=== PATIENT | male | born 1940 | race Two or more races ===

== ENCOUNTER 2019-02-01 22:27 | Inpatient (IN) ==
--- NOTE | 2019-02-01 22:56 | ERNOTE ---
Medical Problem HPI - General Time Seen by Provider: 02/01/19 22:38 Source: patient, family Exam Limitations: clinical condition, language barrier - Immun/Allergies/Home Medications Immunizations: IMMUNIZATION HX Immunizations Up to Date No History of Influenza Vaccine Yes Hx Pneumococcal Vaccination Yes Allergies/Adverse Reactions: Allergies No Known Allergies Allergy (Verified 02/01/19 22:36) Home Medications: HOME MEDICATIONS HYDROcodone/ACETAMINOPHEN [Hydrocodon-Acetaminophen 5-325] 2 tab PO TID 01/24/19 [Last Taken Unknown] Levofloxacin [Levaquin] 500 mg PO DAILY #10 tab 01/24/19 [Last Taken Unknown] Lisinopril 20 mg PO DAILY 01/24/19 [Last Taken Unknown] Polyethylene Glycol 3350 [Miralax] 17 gm PO DAILY 01/24/19 [Last Taken Unknown] - History of Present History Narrative: Patient was seen in this ER approximately 4 days ago. He was having weakness and had a left pleural effusion and was on antibiotics from a previous ER visit. He was started on Lasix and given IV Lasix in the ER. He was having difficulty eating and drinking and so he only took 1 dose of his Lasix and stopped. He has continued to have lower extremity swelling and shortness of breath, being weak all over and having no appetite and difficulty eating and taking in liquids. Timing: getting worse Severity: moderate Review of Systems - Review of Systems Constitutional: Present: recent illness, fatigue, malaise ENT: Present: other - sore tongue. Absent: nose congestion, nasal drainage Respiratory: Present: shortness of breath, orthopnea Cardiology: Absent: chest pain, palpitations Gastrointestinal/Abdominal: Present: nausea. Absent: vomiting - maybe once this am. Genitourinary: Present: decreased urinary output Musculoskeletal: Present: muscle pain Skin: Present: dryness Neurological: Absent: numbness, tingling Hematologic/Lymphatic: Present: easy bruising Medical History (Updated 02/02/19 @ 00:17 by Quinton Craig DO) Pleural effusion (Acute) Hypertension (Acute) Mass of left kidney (Acute) Perforated ulcer Surgical History: Surgical History (Updated 01/24/19 @ 16:39 by Mariana Ruvalcaba RN) History of total left hip replacement Family History: Family History (Updated 02/02/19 @ 01:17 by Natalia Dixon RN) Other Unknown family medical history Social History: (Last Reviewed 02/01/19 @ 22:54 by Quinton Craig DO) Tobacco: Smoking Status: Current some day smoker Physical Exam - Physical Exam General Appearance: Present: wd/wn, alert, mild distress, lethargic Head Exam: Present: normal inspection, no evidence of injury Eye Exam: Normal inspection: bilateral, PERRL: bilateral, EOMI: bilateral Ears, Nose, Throat: Present: other - Tongue is erythematous and dry with white plaques Neck: Present: normal inspection, nontender Respiratory: Present: no respiratory distress, normal breath sounds - Right lung, decreased breath sounds - Left lung Cardiovascular/Chest: Present: regular rate, rhythm, normal peripheral pulses Gastrointestinal/Abdominal: Present: nontender, nondistended, soft, abnormal bowel sounds - Slightly hyperactive bowel sounds Back Exam: Present: normal inspection, normal range of motion Extremity Exam: Present: normal inspection, normal range of motion, extremity edema - Bilateral lower extremity 3+ Neurological Exam: Present: alert, oriented, normal mood/affect, no motor/sensory deficits Skin Exam: Present: normal color, warm/dry Lymphatic Exam: Present: no adenopathy Progress - Results and Orders Patient's Lab Results:: I have reviewed the patient's lab results. Results and Orders: Laboratory Tests 02/01/19 02/01/19 02/01/19 23:00 23:00 23:15 WBC 17.6 H Hgb 11.1 L Hct 33.6 L Plt Count 194 Neutrophils % (Manual) 87 H Sodium 139 Potassium 4.2 Chloride 104 BUN 43 H Creatinine 1.48 H D Random Glucose 100 AST 35 ALT 16 L Alkaline Phosphatase 145 Troponin I Less than 0.017 B-Natriuretic Peptide 2073 H TSH 0.675 Urine Color Yellow Urine Appearance Clear Urine pH 5.5 Ur Specific Brewster 1.020 Urine Protein 15 H Urine Glucose (UA) Negative Urine Ketones Negative Urine Blood 250 H Urine Nitrate Negative Ur Leukocyte Esterase Negative - Vital Signs Patient's Vital Signs:: I have reviewed the patient's vital signs. - EKG EKG #1 EKG: NSR, nonspecific ST T wave changes EKG read: Interp. by me - X-Ray X-Ray #1 X-Ray: chest Interpretation: Interp. by me X-ray Comments: Unchanged left lower lobe density. Right lung normal. Cardiac size appears normal X-Ray #2 X-Ray: abdomen Interpretation: Interp. by me X-ray Comments: Nonspecific bowel gas pattern moderate stool throughout the colon. - Progress/Reassessment Progress Note-Subjective: 02/02/19 00:[address] Reese he agrees an inpatient admission for pneumonia and pleural effusion. Departure Clinical Impression: Pleural effusion, Thrush, oral Pneumonia Qualifiers: Pneumonia type: due to unspecified organism Laterality: left Lung location: lower lobe of lung Qualified Code(s): J18.1 - Lobar pneumonia, unspecified organism - Departure Disposition: Still a patient Condition: Good
[2019-02-01 23:07] LABS: Hematocrit 33.6 % (42.0-52.0); Hemoglobin 11.1 gm/dL (13.5-18.0); Mean Cell Volume 92.1 fl (78-100); Mean Corpuscular Hemoglobin 30.4 pg (27-31); Mean Platelet Volume 8.8 fl (8-11.3); Platelet Count 194 K/mm3 (150-450); Red Blood Count 3.65 M/mm3 (4.7-6.0); Red Cell Distribution Width 13.7 % (11.5-14.0); White Blood Count 17.6 K/mm3 (4.0-10.5)
[2019-02-01 23:12] LABS: Total Cells Counted 100
[2019-02-01 23:18] LABS: Band 4 % (0-2.0); Lymphocyte 5 % (20-51); Monocyte 4 % (0-9); Neutrophil 87 % (42-75); Neutrophil # 15.3 K/mm3 (1.3-6.0)
[2019-02-01 23:19] LABS: Platelet Estimate Normal (NORMAL); RBC Morphology Normal (NORMAL)
[2019-02-01 23:25] LABS: Troponin I Less than 0.017 ng/mL (0.00-0.10)
[2019-02-01 23:28] LABS: ALT 16 U/L (19-67); AST 35 U/L (0-48); Albumin * 1.9 gm/dl (3.4-5.0); Alkaline Phosphatase * 145 U/L (50-170); BNP * 2073 pg/mL (5-650); BUN/Creatinine Ratio 29.1 (9.0-21.6); Bilirubin, Total 0.6 mg/dL (0.0-1.1); Blood Urea Nitrogen 43 mg/dL (6-23); Ca. Corrected For Albumin 10.6 mg/dL (8.4-10.2); Calcium * 9.2 mg/dL (7.9-10.9); Carbon Dioxide 27.2 mmol/L (24-32.6); Chloride 104 mmol/L (97-106); Glucose * 100 mg/dL (70-110); Potassium 4.2 mmol/L (3.4-4.6); Sodium 139 mmol/L (132-142); TSH * 0.675 uIU/mL (0.358-3.74); Total Protein 6.9 gm/dL (6.2-8.2)
[2019-02-01 23:43] LABS: Urine Appearance Clear (CLEAR); Urine Bacteria TRACE; Urine Bilirubin Negative (NEGATIVE); Urine Blood 250 /ul (NEGATIVE); Urine Color Yellow; Urine Ketone Negative (NEGATIVE); Urine Nitrite Negative (NEGATIVE); Urine Protein 15 mg/dL (NEGATIVE); Urine Urobilinogen Normal (NORMAL); Urine WBC 0-5 /hpf (0-5); Urine pH 5.5 pH (5.0-7.0)
[2019-02-02] MEDS ORDERED: AZITHROMYCIN 250 MG TABLET PO ONE (00:24)
[2019-02-02] MEDS ORDERED: DEXTROSE 5 % IN WATER 100 ML BAG IV ONE (00:36)
[2019-02-02] MEDS: NYSTATIN ORAL.SUSP PO SCH ×5 (01:24→21:30)
[2019-02-02] MEDS: PROCHLORPERAZINE MALEATE 10 MG TABLET PO PRN (03:59)
[2019-02-02] MEDS: PHENOL 180 SPRAY BTL MM PRN ×2 (03:59→09:13)
[2019-02-02] MEDS: HYDROcodone/ACETAMINOPHEN 1 EACH TABLET PO PRN ×2 (04:17→13:42)
--- NOTE | 2019-02-02 05:56 | HP ---
Chief Complaint - Chief Complaint Date of Service: 02/02/19 Time of Service: 05:55 Chief Complaint: Shortness of breath, edema, orthopnea, mouth pain, general malaise History of Present Illness: This is an 79-year-old male with no local physician who is just recently moved to the area. He had been seen in the emergency room 4 days ago and given a prescription for Lasix and started on Cipro for a left pleural effusion. He developed oral candidiasis has been placed on nystatin suspension. He presented to the emergency room tonight because of shortness of breath and orthopnea and generalized weakness and debilitation. In the emergency room a chest x-ray was done showing a left pleural effusion. Two-view of the abdomen shows inspissated feces in the rectum and sigmoid colon areas with moderate: Gas noted. No free air in the abdomen and there is no air-fluid levels in the small bowel. Lab work shows an elevated white count of 17,000 with a left shift in the differential. Is admitted to general medical floor for IV antibiotics, IV diuretics, and physical therapy for improving strength and mobility. Medical History (Updated 02/02/19 @ 05:56 by Kennedy Reese DO) Pleural effusion (Acute) Hypertension (Acute) Mass of left kidney (Acute) Perforated ulcer Surgical History: Surgical History (Updated 02/02/19 @ 05:56 by Kennedy Reese DO) History of total left hip replacement Family History: Family History (Updated 02/02/19 @ 01:17 by Natalia Dixon RN) Father Cancer Mother Old age Other Unknown family medical history Social History: (Last Updated 02/02/19 @ 01:19 by Natalia Dixon RN) Tobacco: Smoking Status: Current some day smoker tobacco type: cigarettes Smoking cigarettes per day: 30 Alcohol: alcohol intake: never Substance Use: substance use type: does not use Dietary Habits: caffeine: Yes Pets: pets and animals: none Mandi/Rastafarian: mandi/alevism: Telugu Yarsani Review Of Systems (GEN) - Review of Systems Generalized/Overall Review: Present: Weakness, Malaise, Fatigue, Weight loss EENTM: Present: Mouth Pain - Due to thrush Respiratory: Present: Cough, Shortness of Breath, Orthopnea Cardiac: Present: No Symptoms Reported Abdominal: Present: Constipation Genitourinary: Present: No Symptoms Reported Musculoskeletal: Present: No Symptoms Reported Neurological: Present: Weakness Skin: Present: Change in Color Endocrine: Present: No Symptoms Reported Immunizations: IMMUNIZATION HX Immunizations Up to Date No History of Influenza Vaccine Yes Hx Pneumococcal Vaccination Yes Allergies/Adverse Reactions: Allergies Allergy/AdvReac Type Severity Reaction Status Date / Time No Known Allergies Allergy Verified 02/01/19 22:36 Home Medications: HOME MEDICATIONS HYDROcodone/ACETAMINOPHEN [Hydrocodon-Acetaminophen 5-325] 2 tab PO TID 01/24/19 [Last Taken Unknown] Levofloxacin [Levaquin] 500 mg PO DAILY #10 tab 01/24/19 [Last Taken Unknown] Lisinopril 20 mg PO DAILY 01/24/19 [Last Taken Unknown] Polyethylene Glycol 3350 [Miralax] 17 gm PO DAILY 01/24/19 [Last Taken Unknown] Exam - Exam Vital Signs: Vital Signs - Last Taken Temp 36.8 C 02/02/19 01:00 Pulse 78 02/02/19 01:00 Resp 20 02/02/19 01:00 BP 147/62 02/02/19 01:00 Pulse Ox 97 02/02/19 01:00 Constitutional: Present: Alert, Oriented x3, Cooperative, Well developed, Mild distress, Lethargic, Somnolent, Elderly. Absent: Well nourished ENT Exam: Present: hearing grossly normal, pharyngeal erythema, other - Tongue is red and beefy looking and is sore. There are white plaques on an erythematous base the buccal mucosa and pharynx. Neck: Present: non-tender, supple, normal inspection, limited range of motion Back Exam: Present: other - Severe rotoscoliosis Breasts: Present: Exam deferred Respiratory: Present: decreased breath sounds - In the left chest, rhonchi, expiration (prolonged), plerual rub Cardiovascular/Chest: Present: normal peripheral pulses, regular rate, rhythm, no chest tenderness, edema - Pitting to the proximal one third of the tibia Peripheral Pulses: carotid (R): 2+, carotid (L): 2+, radial (R): 2+, radial (L): 2+ Abdomen: Present: Normal bowel sounds, soft - But with palpable stool in the left colon, nontender, nondistended, no rebound tenderness, no hepatospenomegaly, no masses /Rectal: Present: Exam deferred Extremity: Present: normal range of motion, lower extremity edema, pedal edema Skin Exam: Present: pallor Lymphatic: Present: no adenopathy Neurologic: Present: 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, alert, normal mood/affect, oriented x 3, motor weakness, depressed affect Appearance: Present: appropriate appearance, appropriate insight, neat, no memory impairment Eye contact: Present: cooperative, good eye contact, normal speech Thoughts: Present: normal thought pattern, no apparent hallucination Diagnostic Studies: Abnormal Lab Results 02/01/19 02/01/19 02/01/19 Range/Units 23:00 23:00 23:15 WBC 17.6 H (4.0-10.5) K/mm3 RBC 3.65 L (4.7-6.0) M/mm3 Hgb 11.1 L (13.5-18.0) gm/dL Hct 33.6 L (42.0-52.0) % Neutrophils % (Manual) 87 H (42-75) % Band Neuts % (Manual) 4 H (0-2.0) % Lymphocytes % (Manual) 5 L (20-51) % Neutrophils # (Manual) 15.3 H (1.3-6.0) K/mm3 Lymphocytes # (Manual) 0.9 L (1.5-3.5) k/mm3 BUN 43 H (6-23) mg/dL Creatinine 1.48 H D (0.4-1.4) mg/dL Est GFR (Non-Af Amer) 48 L D (60-130) mL/min BUN/Creatinine Ratio 29.1 H (9.0-21.6) Calcium Adj for Albumin 10.6 H (8.4-10.2) mg/dL ALT 16 L (19-67) U/L B-Natriuretic Peptide 2073 H (5-650) pg/mL Albumin 1.9 L (3.4-5.0) gm/dl Urine Protein 15 H (NEGATIVE) mg/dL Urine Blood 250 H (NEGATIVE) /ul Urine RBC 5-10 H (0-5) /hpf Laboratory Results WBC 17.6 K/mm3 (4.0-10.5) H 02/01/19 23:00 RBC 3.65 M/mm3 (4.7-6.0) L 02/01/19 23:00 Hgb 11.1 gm/dL (13.5-18.0) L 02/01/19 23:00 Hct 33.6 % (42.0-52.0) L 02/01/19 23:00 MCV 92.1 fl (78-100) 02/01/19 23:00 MCH 30.4 pg (27-31) 02/01/19 23:00 MCHC 33.0 g/dl (32-36) 02/01/19 23:00 RDW 13.7 % (11.5-14.0) 02/01/19:00 Plt Count 194 K/mm3 (150-450) 02/01/19 23:00 MPV 8.8 fl (8-11.3) 02/01/19 23:00 87 % (42-75) H 02/01/19 23:00 Band Neuts % (Manual) 4 % (0-2.0) H 02/01/19 23:00 5 % (20-51) L 02/01/19 23:00 4 % (0-9) 02/01/19 23:00 15.3 K/mm3 (1.3-6.0) H 02/01/19 23:00 0.9 k/mm3 (1.5-3.5) L 02/01/19 23:00 0.7 k/mm3 (0.0-1.0) 02/01/19 23:00 Normal (NORMAL) 02/01/19 23:00 RBC Morphology Normal (NORMAL) 02/01/19 23:00 Sodium 139 mmol/L (132-142) 02/01/19 23:00 139 mmol/L (130-142) 02/01/19 23:00 Potassium 4.2 mmol/L (3.4-4.6) 02/01/19 23:00 Chloride 104 mmol/L (97-106) 02/01/19 23:00 Carbon Dioxide 27.2 mmol/L (24-32.6) 02/01/19 23:00 12.0 mmol/L (6.8-13.8) 02/01/19 23:00 BUN 43 mg/dL (6-23) H 02/01/19 23:00 1.48 mg/dL (0.4-1.4) H D 02/01/19 23:00 Est GFR (Non-Af Amer) 48 mL/min (60-130) L D 02/01/19 23:00 29.1 (9.0-21.6) H 02/01/19 23:00 100 mg/dL (70-110) 02/01/19 23:00 Calcium 9.2 mg/dL (7.9-10.9) 02/01/19 23:00 Calcium Adj for Albumin 10.6 mg/dL (8.4-10.2) H 02/01/19 23:00 0.6 mg/dL (0.0-1.1) 02/01/19 23:00 AST 35 U/L (0-48) 02/01/19 23:00 ALT 16 U/L (19-67) L 02/01/19 23:00 145 U/L (50-170) 02/01/19 23:00 Less than 0.017 ng/mL (0.00-0.10) 02/01/19 23:00 B-Natriuretic Peptide 2073 pg/mL (5-650) H 02/01/19 23:00 6.9 gm/dL (6.2-8.2) 02/01/19 23:00 1.9 gm/dl (3.4-5.0) L 02/01/19 23:00 TSH 0.675 uIU/mL (0.358-3.74) 02/01/19 23:00 Yellow 02/01/19 23:15 Clear (CLEAR) 02/01/19 23:15 5.5 pH (5.0-7.0) 02/01/19 23:15 Ur Specific Elliott 1.020 SP.GR. (1.005-1.030) 02/01/19 23:15 15 mg/dL (NEGATIVE) H 02/01/19 23:15 Negative mg/dL (NEGATIVE) 02/01/19 23:15 Negative mg/dL (NEGATIVE) 02/01/19 23:15 250 /ul (NEGATIVE) H 02/01/19 23:15 Negative (NEGATIVE) 02/01/19 23:15 Negative mg/dl (NEGATIVE) 02/01/19 23:15 Prot Sulfosalicylic Acd Negative mg/dL (0) 02/01/19 23:15 Normal EU/dl (NORMAL) 02/01/19 23:15 Ur Leukocyte Esterase Negative /ul (NEGATIVE) 02/01/19 23:15 5-10 /hpf (0-5) H 02/01/19 23:15 0-5 /hpf (0-5) 02/01/19 23:15 Ur Epithelial Cells 0-5 /hpf (0-5) 02/01/19 23:15 Trace (NONE) 02/01/19 23:15 No culture indicated 02/01/19 23:15 Assessment/Plan - Narrative Narrative: 1. IV antibiotics 2. PT to evaluate motor strength and ambulatory skills 3. Continue nystatin for oral thrush 4. Repeat lab at 11 AM this morning 5. Check a lactic acid now - Assessment/Plan (1) Pulmonary edema Problem: Acute Qualifiers: Chronicity: acute Qualified Code(s): J81.0 - Acute pulmonary edema (2) Pneumonia Problem: Acute Qualifiers: Pneumonia type: due to unspecified organism Laterality: left Lung location: lower lobe of lung Qualified Code(s): J18.1 - Lobar pneumonia, unspecified organism (3) Thrush, oral Problem: Acute (4) Pleural effusion Problem: Acute (5) Hypertension Problem: Acute Qualifiers: Hypertension type: essential hypertension Qualified Code(s): I10 - Essential (primary) hypertension (6) Mass of left kidney Problem: Acute (7) Stage III chronic kidney disease Problem: Chronic
[2019-02-02] MEDS ORDERED: LISINOPRIL 10 MG TABLET PO SCH (09:00)
[2019-02-02] MEDS ORDERED: LEVOFLOXACIN 500 MG TABLET PO SCH (09:00)
[2019-02-02] MEDS ORDERED: HYDROcodone/ACETAMINOPHEN 1 EACH TABLET PO SCH (09:00)
[2019-02-02] MEDS: POLYETHYLENE GLYCOL 3350 17 GM PACKET PO SCH (09:50)
[2019-02-02] MEDS: LISINOPRIL 5 MG TABLET PO SCH (11:00)
[2019-02-02 11:37] LABS: Albumin * 1.6 gm/dl (3.4-5.0); Anion Gap 11.1 mmol/L (6.8-13.8); BUN/Creatinine Ratio 29.3 (9.0-21.6); Bilirubin, Total 0.5 mg/dL (0.0-1.1); Ca. Corrected For Albumin 10.3 mg/dL (8.4-10.2); Calcium * 8.7 mg/dL (7.9-10.9); Carbon Dioxide 26.9 mmol/L (24-32.6); Total Protein 6.4 gm/dL (6.2-8.2)
[2019-02-02 11:46] LABS: Hematocrit 30.8 % (42.0-52.0); Hemoglobin 10.2 gm/dL (13.5-18.0); Mean Cell Volume 91.7 fl (78-100); Mean Corpuscular Hemoglobin 30.4 pg (27-31); Mean Corpuscular Hgb Conc 33.1 g/dl (32-36); Mean Platelet Volume 9.5 fl (8-11.3); Platelet Count 180 K/mm3 (150-450); Red Blood Count 3.36 M/mm3 (4.7-6.0); Red Cell Distribution Width 13.6 % (11.5-14.0); White Blood Count 16.5 K/mm3 (4.0-10.5)
[2019-02-02 11:51] LABS: Total Cells Counted 100
[2019-02-02 12:14] LABS: Band 8 % (0-2.0); Lymphocyte 3 % (20-51); Monocyte 3 % (0-9); Neutrophil 86 % (42-75); Neutrophil # 14.2 K/mm3 (1.3-6.0)
[2019-02-02 12:15] LABS: Hypochromia 1+; Polychromasia Trace
[2019-02-02 12:16] LABS: Platelet Estimate Normal (NORMAL)
[2019-02-02] MEDS ORDERED: MORPHINE SULFATE 2 MG/ML DISP.SYRIN IV ONE (14:25)
[2019-02-02] MEDS ORDERED: FLUCONAZOLE 40 MG/ML SUSP.RECON PO SCH (14:45)
--- NOTE | 2019-02-02 15:07 | PN ---
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 He left there before getting a metastatic workup, oncology consult, but was told he would need a cystoscopy. His mouth is very sore and has changed the taste of foods to the point that he can hardly eat. His toungue is beefy red and swollen and appears dry. There is plack along the lateral edges of the tongue. The gums are very sore and tender but no plack is seen there. The pharynx is reddened and appears very inflamed. Cepastat is not working. His Albumin is only 1.6. He has anasarca edema in the LEs (lower 1/3 of the lower legs). Hydrocodone is not helping and it is very difficult to swallow. Plan: 1. Continue the Nystatin qid 2. Add Diflucan 200mg susp. daily 3. Check for pyridoxine deficiency and B12 defic. 4. Give a banana bag of vitamins. 5. Change the Azitrhromycin to susp 200mg daily for 4 more days. 6. Get MRs from [place] [facility] 7. Schedule for a PET scan [facility]. 8. ADD Lidocaine viscous 2% q 2 hrs prn. 9. DC hydrocodone 10. Start MS IV 2mg q 2Hrs prn pain.
[2019-02-02] MEDS: LIDOCAINE HCL 20 ML UDC PO PRN (15:25)
[2019-02-02] MEDS: MULTIVIT INFUSN,ADULT 4,VIT K 10 ML, THIAMINE HCL 100 MG in DEXTROSE 5 % IN WATER 1,000 ML IV SCH ×3 (15:29)
[2019-02-02] MEDS: MORPHINE SULFATE 2 MG/ML DISP.SYRIN IV PRN (15:32)
[2019-02-03] MEDS: PROCHLORPERAZINE MALEATE 10 MG TABLET PO PRN (02:47)
[2019-02-03] MEDS: MORPHINE SULFATE 2 MG/ML DISP.SYRIN IV PRN ×6 (03:58→22:48)
[2019-02-03 05:29] LABS: Hematocrit 30.1 % (42.0-52.0); Mean Cell Volume 90.7 fl (78-100); Mean Corpuscular Hemoglobin 30.1 pg (27-31); Mean Corpuscular Hgb Conc 33.2 g/dl (32-36); Mean Platelet Volume 9.1 fl (8-11.3); Neutrophil # 13.8 K/mm3 (1.3-6.0); Neutrophil % 86.4 % (42-75.0); Platelet Count 176 K/mm3 (150-450); Red Blood Count 3.32 M/mm3 (4.7-6.0); Red Cell Distribution Width 13.5 % (11.5-14.0)
[2019-02-03 05:54] LABS: Albumin * 1.7 gm/dl (3.4-5.0); Anion Gap 11.3 mmol/L (6.8-13.8); BUN/Creatinine Ratio 27.5 (9.0-21.6); Bilirubin, Total 0.5 mg/dL (0.0-1.1); Ca. Corrected For Albumin 9.6 mg/dL (8.4-10.2); Calcium * 8.1 mg/dL (7.9-10.9); Carbon Dioxide 25.7 mmol/L (24-32.6); Total Protein 6.5 gm/dL (6.2-8.2)
[2019-02-03] MEDS: POLYETHYLENE GLYCOL 3350 17 GM PACKET PO SCH ×2 (08:49→17:16)
[2019-02-03] MEDS: LISINOPRIL 5 MG TABLET PO SCH (08:50)
[2019-02-03] MEDS: NYSTATIN ORAL.SUSP PO SCH ×4 (08:52→20:19)
[2019-02-03] MEDS ORDERED: AZITHROMYCIN 200 MG/5 ML SUSP.RECON PO SCH (09:00)
[2019-02-03] MEDS ORDERED: LISINOPRIL 5 MG TABLET PO SCH (09:00)
[2019-02-03] MEDS ORDERED: FLUCONAZOLE 40 MG/ML SUSP.RECON PO SCH (09:00)
[2019-02-03] MEDS: LIDOCAINE HCL 20 ML UDC PO PRN ×3 (13:34→22:52)
[2019-02-03] MEDS: MULTIVIT INFUSN,ADULT 4,VIT K 10 ML, THIAMINE HCL 100 MG in DEXTROSE 5 % IN WATER 1,000 ML IV SCH ×3 (15:11)
[2019-02-03] MEDS: PANTOPRAZOLE SODIUM 40 MG in NORMAL SALINE 100 ML IV SCH (17:58)
--- NOTE | 2019-02-03 18:01 | PN ---
Subjective - Date and Time Seen Date: 02/03/19 Time: 08:00 Subjective Narrative: thought he was feeling a little bit better this morning but he refused supper last night and breakfast this morning. Says he just cannot eat. His mouth hurts and his stomach is nauseous. His albumin is down to 1.7. His kidney function has improved from 47-62 EGFR. I believe this is a good time to proceed with CT imaging of the chest abdomen and pelvis with contrast tomorrow. He is in no respiratory distress and there is no evidence of fluid overload. His tongue remains beefy red with some swelling. His gums are inflamed. I do not see any plaque formation. Examination of the lungs continue to show adventitious rhonchi with some wheezes and diminished breath sounds in the left chest. The abdomen is soft but tender in the midepigastrium and right hypochondrium. The liver is tender to palpation. Extremities continue to show some anasarca-like edema. Unfortunately, I believe that he is pretty sick man and needs to be completely diagnosed. His hydration status is improved. His hemoglobin has leveled at 10.1 g. The white count is still elevated. Morphine seems to help with his pain and discomfort but he is refusing any topical anesthetics for his mouth now. Objective - Review of Systems Generalized/Overall Review: Reports: Weakness, Malaise, Fatigue, Weight loss EENTM: Reports: Throat Pain, Mouth Pain, Other - Tongue swelling Respiratory: Reports: Cough, Shortness of Breath, Wheezing Cardiac: Reports: No Symptoms Reported Abdominal: Reports: Nausea, Abdominal Pain. Denies: Vomiting Genitourinary Symptoms: Reports: No Symptoms Reported Musculoskeletal Complaints: Reports: Muscle Pain Neurological: Reports: No Symptoms Reported, Weakness Skin: Reports: No Symptoms Reported, Change in Color Endocrine: Reports: No Symptoms Reported - Vitals Vitals: Last Vital Signs Temp 36.5 C 02/03/19 14:00 Pulse 76 02/03/19 14:00 Resp 18 02/03/19 14:00 BP 148/68 02/03/19 14:00 Pulse Ox 94 02/03/19 14:00 - Abnormal Lab Findings Abnormal Lab Findings: Abnormal Lab Results 02/03/19 02/03/19 Range/Units 05:26 05:26 WBC 16.0 H (4.0-10.5) K/mm3 RBC 3.32 L (4.7-6.0) M/mm3 Hgb 10.0 L (13.5-18.0) gm/dL Hct 30.1 L (42.0-52.0) % Immature Gran % (Auto) 2.70 H (0.001-0.429) % Immature Gran # (Auto) 0.43 H (0.000-0.0310) K/mm3 Neutrophils % 86.4 H (42-75.0) % Lymphocytes % 6.3 L (20-51) % Neutrophils # 13.8 H (1.3-6.0) K/mm3 Lymphocytes # 1.00 L (1.5-3.5) k/mm3 BUN 33 H (6-23) mg/dL BUN/Creatinine Ratio 27.5 H (9.0-21.6) ALT 11 L (19-67) U/L Albumin 1.7 L (3.4-5.0) gm/dl - Exam Constitutional: Present: Alert, Oriented x3, Cooperative, Elderly, Thin and frail ENT Exam: Present: dry mucous membranes - Tongue is red and swollen and the gums are inflamed and the throat is inflamed as well. Neck: Present: non-tender, full range of motion, supple, normal inspection Breasts: Present: Exam deferred Respiratory: Present: decreased breath sounds - On the left, rhonchi, wheezing, plerual rub Cardiovascular/Chest: Present: normal peripheral pulses, regular rate, rhythm, no chest tenderness, no edema, no gallop, no JVD, no murmur, no rub Abdomen: Present: Normal bowel sounds, soft, nontender, nondistended, no rebound tenderness, tender, guarding - And wincing on palpation of the right upper quadrant. 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 CT chest abdomen and pelvis with contrast tomorrow 2. Add sucralfate and pantoprazole as ordered 3. Repeat morning lab - Problems/Diagnosis (1) Pulmonary edema Problem: Acute Qualifiers: Chronicity: acute Qualified Code(s): J81.0 - Acute pulmonary edema (2) Pneumonia Problem: Acute Qualifiers: Pneumonia type: due to unspecified organism Laterality: left Lung location: lower lobe of lung Qualified Code(s): J18.1 - Lobar pneumonia, unspecified organism (3) Thrush, oral Problem: Acute (4) Pleural effusion Problem: Acute (5) Hypertension Problem: Acute Qualifiers: Hypertension type: essential hypertension Qualified Code(s): I10 - Essential (primary) hypertension (6) Mass of left kidney Problem: Acute (7) Stage III chronic kidney disease Problem: Chronic
[2019-02-03] MEDS: SUCRALFATE 1 G/10 ML UDC PO SCH (20:17)
[2019-02-04] MEDS: LIDOCAINE HCL 20 ML UDC PO PRN (04:39)
[2019-02-04] MEDS: MORPHINE SULFATE 2 MG/ML DISP.SYRIN IV PRN ×4 (04:49→20:02)
[2019-02-04] MEDS ORDERED: DIATRIZOATE MEGLUMINE, SODIUM 30 ML BTL PO ONE (05:00)
[2019-02-04] MEDS: LISINOPRIL 5 MG TABLET PO SCH (08:19)
[2019-02-04] MEDS: SUCRALFATE 1 G/10 ML UDC PO SCH ×4 (08:27→20:06)
[2019-02-04] MEDS: NYSTATIN ORAL.SUSP PO SCH ×4 (08:28→17:13)
[2019-02-04] MEDS: AZITHROMYCIN 200 MG/5 ML SUSP.RECON PO SCH (08:28)
[2019-02-04 08:34] LABS: Hematocrit 32.5 % (42.0-52.0); Hemoglobin 10.7 gm/dL (13.5-18.0); Mean Cell Volume 91.5 fl (78-100); Mean Corpuscular Hemoglobin 30.1 pg (27-31); Mean Corpuscular Hgb Conc 32.9 g/dl (32-36); Mean Platelet Volume 9.1 fl (8-11.3); Neutrophil # 16.4 K/mm3 (1.3-6.0); Neutrophil % 85.6 % (42-75.0); Platelet Count 209 K/mm3 (150-450); Red Blood Count 3.55 M/mm3 (4.7-6.0); Red Cell Distribution Width 13.6 % (11.5-14.0); White Blood Count 19.1 K/mm3 (4.0-10.5)
[2019-02-04 08:47] LABS: Albumin * 1.8 gm/dl (3.4-5.0); Anion Gap 8.8 mmol/L (6.8-13.8); BUN/Creatinine Ratio 22.2 (9.0-21.6); Bilirubin, Total 0.7 mg/dL (0.0-1.1); Ca. Corrected For Albumin 9.7 mg/dL (8.4-10.2); Calcium * 8.3 mg/dL (7.9-10.9); Carbon Dioxide 28.1 mmol/L (24-32.6); Potassium 3.9 mmol/L (3.4-4.6); Total Protein 7.2 gm/dL (6.2-8.2)
[2019-02-04] MEDS ORDERED: FLUCONAZOLE 40 MG/ML SUSP.RECON PO SCH (09:00)
[2019-02-04] MEDS: POLYETHYLENE GLYCOL 3350 17 GM PACKET PO SCH (09:27)
--- NOTE | 2019-02-04 17:07 | CONS ---
[facility] - General Date of Service: 02/04/19 Narrative: 79-year-old male past medical history of left renal mass, hypertension, pleural effusion, and perforated ulcer presents with complaints of pain in his mouth and throat when eating or swallowing. He was admitted on February 02, 2019 after presenting to the emergency room with shortness of breath and generalized weakness. He was found to have pneumonia and started on ceftriaxone and azithromycin, he was also started on nystatin and fluconazole for oral thrush. Since admission he has been refusing to take most of his medications due to pain with swallowing. He has also been refusing to eat and drink due to the oral pain. Source: patient - History of Present Illness Timing/Duration: other - 2 weeks Allergies/Adverse Reactions: Allergies No Known Allergies Allergy (Verified 02/01/19 22:36) Home Medications: Home Medications Medication Instructions Recorded Last Taken HYDROcodone/ACETAMINOPHEN 2 tab PO TID 01/24/19 Unknown [Hydrocodon-Acetaminophen 5-325] Levofloxacin [Levaquin] 500 mg PO DAILY #10 tab 01/24/19 Unknown Polyethylene Glycol 3350 [Miralax] 17 gm PO DAILY PRN 01/24/19 Unknown Lisinopril 5 mg PO DAILY 02/02/19 Unknown Medications - Medications Current Medications: Current Medications Azithromycin (Zithromax Suspension) 200 mg PO DAILY [facility]; Protocol Stop: 02/07/19 09:01 Last Admin: 02/04/19 08:28 Dose: 200 mg Documented by: Fluconazole (Diflucan Suspension) 200 mg PO DAILY [facility] Stop: 03/06/19 09:01 Last Admin: 02/04/19 08:27 Dose: 200 mg Documented by: Ceftriaxone Sodium 1,000 mg/ (Dextrose/Water) 100 mls @ 200 mls/hr IV Q24H [facility]; Protocol Stop: 03/04/19 00:31 Last Infusion: 02/04/19 00:25 Dose: Infused Documented by: Pantoprazole Sodium 40 mg/ (Sodium Chloride) 100 mls @ 400 mls/hr IV Q24H [facility] Stop: 03/05/19 17:46 Last Infusion: 02/03/19 18:13 Dose: Infused Documented by: Lidocaine HCl (Lidocaine Hcl Viscous 2%) 10 ml PO Q2H PRN PRN Reason: Inflammation Stop: 03/04/19 14:31 Last Admin: 02/04/19 04:39 Dose: 10 ml Documented by: Lisinopril (Zestril) 5 mg PO DAILY [facility] Stop: 03/04/19 10:16 Last Admin: 02/04/19 08:19 Dose: Not Given Documented by: Morphine Sulfate (Morphine Sulfate) 2 mg IV Q2H PRN PRN Reason: Pain Stop: 03/04/19 14:46 Last Admin: 02/04/19 14:59 Dose: 2 mg Documented by: Nystatin (Mycostatin 100 Mu/Ml Suspension) 5 ml PO QID [facility] Stop: 03/04/19 13:01 Last Admin: 02/04/19 13:30 Dose: Not Given Documented by: Phenol/Menthol (Chloraseptic) 1 spray MM PRN PRN PRN Reason: Sore Throat Stop: 03/04/19 03:32 Last Admin: 02/02/19 09:13 Dose: 1 spray Documented by: Polyethylene Glycol (Miralax) 17 gm PO DAILY [facility] Stop: 03/04/19 09:01 Last Admin: 02/04/19 09:27 Dose: Not Given Documented by: Prochlorperazine Maleate (Compazine) 10 mg PO Q6H PRN PRN Reason: Nausea Stop: 03/04/19 03:35 Last Admin: 02/03/19 02:47 Dose: 10 mg Documented by: Sucralfate (Carafate Suspension) 1 g PO ACHS [facility] Stop: 03/05/19 21:01 Last Admin: 02/04/19 11:05 Dose: Not Given Documented by: Review of Systems - Review of Systems Generalized/Overall Review: Absent: Fever EENTM: Present: Throat Pain, Mouth Pain, Other Respiratory: Absent: Shortness of Breath Cardiac: Absent: Chest Pain Abdominal: Present: Abdominal Pain Musculoskeletal: Present: Back Pain Misc: All systems neg except as marked Physical Examination - Exam Vital Signs: Vital Signs - Last Taken Temp 37.4 C 02/04/19 15:20 Pulse 94 02/04/19 15:20 Resp 20 02/04/19 15:20 BP 124/57 02/04/19 15:20 Pulse Ox 93 02/04/19 15:20 O2 Oxygen Delivery Method Room Air Constitutional: Present: Alert, Cooperative, No distress, Elderly ENT Exam: Present: hearing grossly normal, dry mucous membranes, other - Erythema noted throughout oral mucosa as well as tongue. No plaques noted. Eye Exam: bilateral eye: normal inspection Neck: Absent: lymphadenopathy (R), lymphadenopathy (L) Respiratory: Present: lungs clear, no respiratory distress, no accessory muscle use, No wheezing. Absent: crackles Cardiovascular/Chest: Present: normal peripheral pulses, regular rate, rhythm, no murmur, edema - 2+ bilateral lower extremity Peripheral Pulses: dorsalis-pedis (R): 1+, dorsalis-pedis (L): 1+ Abdomen: Present: Normal bowel sounds, soft, nontender Skin Exam: Present: normal color, warm/dry Neurologic: Present: alert, normal mood/affect Appearance: Present: appropriate appearance Eye contact: Present: cooperative, good eye contact Thoughts: Present: normal mood /affect - Results and Findings: Narrative: 79-year-old male past medical history of left renal mass, hypertension, pleural effusion, and perforated ulcer presents with complaints of pain in his mouth and throat when eating or swallowing. He was admitted on February 02, 2019 after presenting to the emergency room with shortness of breath and generalized weakness. He was found to have pneumonia and started on ceftriaxone and flor thromycin, he was also started on nystatin and fluconazole for oral thrush. Since admission he has been refusing to take most of his medications due to pain with swallowing. He has also been refusing to eat and drink due to the oral pain. Also consulted for pain in his mouth and throat with eating and drinking. He may have an atrophic form of oral pharyngeal candidiasis. Differential would include cytomegalovirus vs herpes simplex virus infection. Though this would be lower on the differential. Due to his inability to tolerate oral medications, I recommend transitioning him to IV fluconazole 200 mg daily. If this is secondary to oropharyngeal candidiasis his symptoms should improve within a few days. I also recommend starting him on IV fluid hydration due to inadequate o ral intake. Lab/Microbiology results last 24 hrs: Abnormal/Pending Laboratory Last 24 HRS 02/04/19 02/04/19 08:28 08:28 WBC 19.1 H RBC 3.55 L Hgb 10.7 L Hct 32.5 L Immature Gran % (Auto) 1.90 H Immature Gran # (Auto) 0.36 H Neutrophils % 85.6 H Lymphocytes % 6.2 L Neutrophils # 16.4 H Lymphocytes # 1.18 L Monocytes # 1.2 H Sodium 131 L BUN 26 H BUN/Creatinine Ratio 22.2 H ALT 10 L Albumin 1.8 L Culture 02/02/19 00:30 Blood Culture - Preliminary Blood NO GROWTH AFTER 48 HOURS 02/01/19 23:00 Blood Culture - Preliminary Blood NO GROWTH AFTER 48 HOURS - Assessments/Findings (1) Thrush, oral Diagnosis(s): I did not note any plaques on his oral mucosa. He may have been atrophic form of oropharyngeal candidiasis. Due to his inability to take oral medications, I would recommend that he be treated with IV fluconazole 200 mg daily for 7 days. Problem: Acute (2) Stage III chronic kidney disease Problem: Chronic (3) Hypertension Problem: Chronic Qualifiers: Hypertension type: essential hypertension Qualified Code(s): I10 - Essen tial (primary) hypertension (4) Mass of left kidney Problem: Chronic (5) Inadequate oral nutritional intake Problem: Acute
[2019-02-04] MEDS: PANTOPRAZOLE SODIUM 40 MG in NORMAL SALINE 100 ML IV SCH (17:14)
[2019-02-04] MEDS ORDERED: FLUCONAZOLE/SODIUM CHLORIDE 200 MG/100 ML BAG IV SCH (18:00)
--- NOTE | 2019-02-04 20:47 | PN ---
Subjective - Date and Time Seen Date: 02/04/19 Time: 08:15 Subjective Narrative: Mr. Plaza has continued to complain of pain and discomfort in his mouth and throat. He is totally anorexic and will not eat or drink. He did take 3 of his pills this morning but not all of his medicine. He complains of abdominal discomfort as well. I did a CT scan of his chest abdomen and pelvis with IV contrast only today. He would not drink the oral contrast. The results show that the left kidney is almost completely replaced by cancer and that it has spread to the retroperitoneal wall and there are lymph nodes around the aorta that appear to be involved. Surprisingly the adrenal glands are not involved. The CT of the chest shows this large left pleural effusion there is uncertain whether it is an exudate or transudate from either infection or from metastatic cancer. Tapping fluid from the lung will be required for cytology. I am doing all I can to try to keep him comfortable but he refuses Xylocaine Viscous for his mouth pain. The IV morphine does seem to help but does not last the full 2 hours. At dose will need to be increased. This evening I discussed with him the results of his studies and told him that our biggest issue right now is nutrition. He is malnourished and his albumin is only 1.6. I suspect he is accountable lysing muscle to keep it that high. I talked to him briefly about a PEG tube which he did not fully understand. I will have another conversation with him in the morning hopefully with his son present so that he fully understands his treatment options. I did tell him that if we do not start getting nutrition in him he will . If he chooses to want to fight this cancer then will arrange for a oncology consultation. He may need a pulmonology consultation to take some of this fluid off the left lung and send it for cytology. He is coughing up some light yellow thick mucus this evening which is the first time I seen him have a productive cough. His white count is at 19,000 this morning and his kidney function is normal. I asked Dr. Pan to consult, review his status, and make recommendations. She did recommend changing the Diflucan to oral fluconazole and that changes been made. I appreciate her consu ltation. At this time I consider his prognosis is rather grave certainly guarded. We will make some plans tomorrow morning as to what to do next. Objective - Review of Systems Generalized/Overall Review: Reports: Weakness, Malaise, Fatigue, Weight loss EENTM: Reports: Throat Pain, Mouth Pain Respiratory: Reports: Cough Cardiac: Reports: No Symptoms Reported Abdominal: Reports: Abdominal Pain Genitourinary Symptoms: Reports: No Symptoms Reported Musculoskeletal Complaints: Reports: No Symptoms Reported Neurological: Reports: No Symptoms Reported Skin: Reports: No Symptoms Reported Endocrine: Reports: No Symptoms Reported - Vitals Vitals: Last Vital Signs Temp 36.4 C 02/04/19 19:24 Pulse 90 02/04/19 19:24 Resp 18 02/04/19 19:24 BP 114/56 02/04/19 19:24 Pulse Ox 95 02/04/19 19:24 - Abnormal Lab Findings Abnormal Lab Findings: Abnormal Lab Results 02/04/19 02/04/19 Range/Units 08:28 08:28 WBC 19.1 H (4.0-10.5) K/mm3 RBC 3.55 L (4.7-6.0) M/mm3 Hgb 10.7 L (13.5-18.0) gm/dL Hct 32.5 L (42.0-52.0) % Immature Gran % (Auto) 1.90 H (0.001-0.429) % Immature Gran # (Auto) 0.36 H (0.000-0.0310) K/mm3 Neutrophils % 85.6 H (42-75.0) % Lymphocytes % 6.2 L (20-51) % Neutrophils # 16.4 H (1.3-6.0) K/mm3 Lymphocytes # 1.18 L (1.5-3.5) k/mm3 Monocytes # 1.2 H (0.0-1.0) k/mm3 Sodium 131 L (132-142) mmol/L BUN 26 H (6-23) mg/dL BUN/Creatinine Ratio 22.2 H (9.0-21.6) ALT 10 L (19-67) U/L Albumin 1.8 L (3.4-5.0) gm/dl - EKG/Xray Findings XRAY: CT chest abdomen and pelvis with IV contrast Interpretation: Reviewed by me - Exam Constitutional: Present: Alert, Oriented x3, Cooperative, Well developed, Elderly, Thin and frail. Absent: Well nourished ENT Exam: Present: normal ENT inspection, hearing grossly normal, pharynx normal, TMs normal Neck: Present: non-tender, full range of motion, supple Respiratory: Present: decreased breath sounds - In the left lung, crackles, rhonchi Cardiovascular/Chest: Present: normal peripheral pulses, regular rate, rhythm, no chest tenderness, no gallop, no JVD, no murmur, no rub, edema Abdomen: Present: Normal bowel sounds, tender, firm /Rectal: Present: Exam deferred Extremity: Present: normal range of motion, non-tender, normal inspection, pedal edema, swelling Skin Exam: Present: normal color, warm/dry, no cyanosis Lymphatic: Present: no adenopathy Neurologic: Present: contact center representative II-XII nml as tested, alert, motor weakness, depressed affect. Absent: normal mood/affect Appearance: Present: appropriate appearance, appropriate insight, neat, no memory impairment Eye contact: Present: cooperative, good eye contact, normal speech Thoughts: Present: normal thought pattern, no apparent hallucination Assessment/Plan Plan Narrative: 1. Increased pain medication 2. Change to IV fluconazole and DC the oral 3. Plan a family discussion tomorrow morning about 7:45 4. Consider placement of PEG tube if patient agrees so we can start some nutrition with him. 5. See if oncology or pulmonology might be here tomorrow to consult. 6. If patient agrees to PEG tube then I will have general surgery consult. - Problems/Diagnosis (1) Pulmonary edema Problem: Acute Qualifiers: Chronicity: acute Qualified Code(s): J81.0 - Acute pulmonary edema (2) Pneumonia Problem: Acute Qualifiers: Pneumonia type: due to unspecified organism Laterality: left Lung location: lower lobe of lung Qualified Code(s): J18.1 - Lobar pneumonia, unspecified organism (3) Thrush, oral Problem: Acute (4) Pleural effusion Problem: Acute (5) Hypertension Problem: Chronic Qualifiers: Hypertension type: essential hypertension Qualified Code(s): I10 - E ssential (primary) hypertension (6) Mass of left kidney Problem: Chronic (7) Stage III chronic kidney disease Problem: Chronic (8) Kidney cancer, primary, 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
[2019-02-05] MEDS: MORPHINE SULFATE 4 MG/ML SYRG IV PRN ×2 (00:13→12:00)
[2019-02-05 05:24] LABS: Hematocrit 30.7 % (42.0-52.0); Hemoglobin 10.1 gm/dL (13.5-18.0); Mean Cell Volume 90.8 fl (78-100); Mean Corpuscular Hemoglobin 29.9 pg (27-31); Mean Corpuscular Hgb Conc 32.9 g/dl (32-36); Mean Platelet Volume 9.2 fl (8-11.3); Platelet Count 202 K/mm3 (150-450); Red Blood Count 3.38 M/mm3 (4.7-6.0); Red Cell Distribution Width 13.6 % (11.5-14.0); White Blood Count 23.5 K/mm3 (4.0-10.5)
[2019-02-05 05:40] LABS: Total Cells Counted 100
[2019-02-05 05:43] LABS: Albumin * 1.6 gm/dl (3.4-5.0); Anion Gap 14.8 mmol/L (6.8-13.8); Bilirubin, Total 0.6 mg/dL (0.0-1.1); Ca. Corrected For Albumin 9.8 mg/dL (8.4-10.2); Calcium * 8.2 mg/dL (7.9-10.9); Carbon Dioxide 27.1 mmol/L (24-32.6); Potassium 3.9 mmol/L (3.4-4.6); Total Protein 6.6 gm/dL (6.2-8.2)
[2019-02-05 05:50] LABS: BUN/Creatinine Ratio 19.8 (9.0-21.6)
[2019-02-05 06:17] LABS: Band 1 % (0-2.0); Lymphocyte 2 % (20-51); Monocyte 1 % (0-9); Neutrophil 96 % (42-75); Neutrophil # 22.6 K/mm3 (1.3-6.0); Platelet Estimate Normal (NORMAL); RBC Morphology Normal (NORMAL)
[2019-02-05] MEDS ORDERED: FLUCONAZOLE/SODIUM CHLORIDE 200 MG/100 ML BAG IV SCH (09:00)
[2019-02-05] MEDS ORDERED: OXYMETAZOLINE HCL 150 SPRAY BTL NS ONE (09:34)
[2019-02-05] MEDS: SUCRALFATE 1 G/10 ML UDC PO SCH ×3 (10:10→17:36)
[2019-02-05] MEDS: AZITHROMYCIN 200 MG/5 ML SUSP.RECON PO SCH (10:11)
[2019-02-05 11:42] LABS: Prothrombin Time (Patient) 12.4 Seconds (9.1-10.7)
[2019-02-05 11:49] LABS: INR 1.26 INR (0.92-1.08)
[2019-02-05 13:29] LABS: Body Fluid WBC 6542 /uL (0-1000)
[2019-02-05 13:42] LABS: Body Fluid Appearance SLIGHTLY CLOUDY (CLEAR); Body Fluid Color YELLOW (COLORLESS)
[2019-02-05] MEDS: PANTOPRAZOLE SODIUM 40 MG in NORMAL SALINE 100 ML IV SCH (17:37)
--- NOTE | 2019-02-05 17:59 | DS ---
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 He had not been eating or drinking of course and had become dehydrated and was very weak. He has moved here from [facility]. 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 The metastatic work-up has not been done. He did have an appointment with oncology at the [place] on February 12. He was given IV fluids and started on nystatin swish and swallow but did not feel it was working so it was changed to Diflucan. He could not swallow that either so it was changed to IV fluconazole. He had not eaten anything food richardson until today when he had a little bit of chicken and noodles soup. He has an albumin of 1.6. Vital signs on arrival showed an afebrile but I suspect that he is an allergic and unable to mount a thermal tactic response. Chest x-ray revealed a large pleural effusion. It was uncertain as to whether this was a pneumonia with an exudate or whether it might be a metastatic lesion. He has been on Rocephin and azithromycin. I did a CT scan of his chest which further defined this is a large loculated fluid but still could not be distinguished between malignancy or infection. CT of the abdomen shows a left kidney that is nearly totally repla braydon with tumor and there is metastasis to the retroperitoneal wall and suspicious for periaortic adenopathy. There is not any evidence of tumor anywhere else. Because of the persistence of his sore throat in spite of aggressive treatment for Vane I had Dr. Garcia consult. He did an upper nasopharyngeal endoscopy and just found generalized hyperemia and inflammation. He did not see any evidence of tumor. Dr. Morteza Guevara was here today graciously agreed to see this gentleman in consultation and recommended he be transferred to a facility where he could have a thoracentesis chest tube placed and then have it and infused with TPA for several days to break up the consolidation. I talked with Dr.Valerie Waldrop chip loft worker at [facility] and reviewed the case with her and she felt that they could offer the services he needs. I then contacted Dr. Miranda, hospitalist at [facility] and he has graciously excepted this patient in transfer. The other major concern I have is his nutritional status. His albumin is very low at 1.6 and he has not eaten anything in about a week. The appearance of the mouth is much less inflamed today than it was 2 days ago. So perhaps is that resolves he will be able to eat again but if not he will need a PEG tube placed. He does have an oncology visit scheduled at the on February 12. At the time of transfer he is stable. I have had a lengthy discussion with him about his diagnoses and what needs to be done. That was reaffirmed by Dr. Guevara's conversation with them (patient and his son) and they expressed understanding. He will be transferred by ground ambulance. Consultation Done:: Dr. Garcia, Dr. Guevara, Dr. Terrell Procedures Performed: see notes below Procedures: Ultrasound-guided thoracentesis by Dr. Potts today Nasopharyngeal endoscopy by Dr. Garcia CT of the chest abdomen and pelvis with IV contrast only - Results and Findings Results and Findings: Laboratory Results - last 24 hr 02/05/19 02/05/19 02/05/19 05:15 05:15 05:15 WBC 23.5 H D RBC 3.38 L Hgb 10.1 L Hct 30.7 L MCV 90.8 MCH 29.9 MCHC 32.9 RDW 13.6 Plt Count 202 MPV 9.2 Neutrophils % (Manual) 96 H Band Neuts % (Manual) 1 Lymphocytes % (Manual) 2 L Monocytes % (Manual) 1 Neutrophils # (Manual) 22.6 H Lymphocytes # (Manual) 0.5 L Monocytes # (Manual) 0.2 Platelet Estimate Normal RBC Morphology Normal PT 12.4 H INR (Anticoag Therapy) 1.26 H Sodium 136 Plasma Sodium 136 Potassium 3.9 Chloride 98 Carbon Dioxide 27.1 Anion Gap 14.8 H BUN 24 H Creatinine 1.21 Est GFR (Non-Af Amer) 61 BUN/Creatinine Ratio 19.8 Random Glucose 93 Calcium 8.2 Calcium Adj for Albumin 9.8 Total Bilirubin 0.6 AST 28 ALT 11 L Alkaline Phosphatase 100 Lactate Dehydrogenase 176 Total Protein 6.6 Albumin 1.6 L Fluid Color Fluid Appearance Fluid WBC Fluid RBC Fluid Neutrophils Pleural pH Pleural Total Protein Pleural LDH Pleural Glucose Miscellaneous Cytology 02/05/19 02/05/19 02/05/19 12:45 12:45 12:45 WBC RBC Hgb Hct MCV MCH MCHC RDW Plt Count MPV Neutrophils % (Manual) Band Neuts % (Manual) Lymphocytes % (Manual) Monocytes % (Manual) Neutrophils # (Manual) Lymphocytes # (Manual) Monocytes # (Manual) Platelet Estimate RBC Morphology PT INR (Anticoag Therapy) Sodium Plasma Sodium Potassium Chloride Carbon Dioxide Anion Gap BUN Creatinine Est GFR (Non-Af Amer) BUN/Creatinine Ratio Random Glucose Calcium Calcium Adj for Albumin Total Bilirubin AST ALT Alkaline Phosphatase Lactate Dehydrogenase Total Protein Albumin Fluid Color Yellow Fluid Appearance Slightly cloudy Fluid WBC 6542 H Fluid RBC Greater than 1000.0 H Fluid Neutrophils 100 Pleural pH 7.0 Pleural Total Protein 4.4 Pleural LDH 3971 Pleural Glucose 2 Miscellaneous Cytology Spec. sent to path. - Medications Medications: Active Medications Azithromycin (Zithromax Suspension) 200 mg PO DAILY [facility]; Protocol Stop: 02/07/19 09:01 Last Admin: 02/05/19 10:11 Dose: 200 mg Documented by: Ceftriaxone Sodium 1,000 mg/ (Dextrose/Water) 100 mls @ 200 mls/hr IV Q24H [facility]; Protocol Stop: 03/04/19 00:31 Last Infusion: 02/05/19 00:41 Dose: Infused Documented by: Pantoprazole Sodium 40 mg/ (Sodium Chloride) 100 mls @ 400 mls/hr IV Q24H [facility] Stop: 03/05/19 17:46 Last Admin: 02/04/19 17:14 Dose: 400 mls/hr Documented by: Fluconazole/Sodium Chloride (Diflucan) 200 mg in 100 mls @ 100 mls/hr IV Q24H [facility]; Protocol Stop: 02/19/19 09:01 Last Admin: 02/05/19 10:09 Dose: 100 mls/hr Documented by: Lidocaine HCl (Lidocaine Hcl Viscous 2%) 10 ml PO Q2H PRN PRN Reason: Inflammation Stop: 03/04/19 14:31 Last Admin: 02/04/19 04:39 Dose: 10 ml Documented by: Morphine Sulfate (Morphine Sulfate) 4 mg IV Q2H PRN PRN Reason: Pain Stop: 03/06/19 20:16 Last Admin: 02/05/19 12:00 Dose: 4 mg Documented by: Polyethylene Glycol (Miralax) 17 gm PO DAILY [facility] Stop: 03/04/19 09:01 Last Admin: 02/04/19 09:27 Dose: Not Given Documented by: Prochlorperazine Maleate (Compazine) 10 mg PO Q6H PRN PRN Reason: Nausea Stop: 03/04/19 03:35 Last Admin: 02/03/19 02:47 Dose: 10 mg Documented by: Sucralfate (Carafate Suspension) 1 g PO ACHS [facility] Stop: 03/05/19 21:01 Last Admin: 02/05/19 10:10 Dose: 1 g Documented by: Discontinued Medications Hydrocodone Bitart/Acetaminophen ([place] 5-325) 2 each PO Q8H PRN PRN Reason: Pain Stop: 03/04/19 03:34 Last Admin: 02/02/19 13:42 Dose: 2 each Documented by: Azithromycin (Zithromax) 500 mg PO ONCE ONE; Protocol Stop: 02/02/19 00:25 Last Admin: 02/02/19 00:39 Dose: 500 mg Documented by: Azithromycin (Zithromax Suspension) 200 mg PO DAILY [facility]; Protocol Stop: 02/06/19 09:01 Last Admin: 02/03/19 08:50 Dose: 200 mg Documented by: Diatrizoate Meglum/Diatrizoate Sod (Gastrografin Solution) 60 ml PO ONCE ONE Stop: 02/04/19 05:01 Last Admin: 02/04/19 04:50 Dose: 60 ml Documented by: Fluconazole (Diflucan Suspension) 200 mg PO DAILY [facility] Stop: 03/05/19 09:01 Last Admin: 02/03/19 08:49 Dose: 200 mg Documented by: Fluconazole (Diflucan Suspension) 200 mg PO DAILY [facility] Stop: 03/06/19 09:01 Last Admin: 02/04/19 08:27 Dose: 200 mg Documented by: Parenteral Vitamin Supplement 10 ml/ Thiamine HCl 100 mg/Dextrose/Water 1,011 mls @ 30 mls/hr IV .Q24H [facility] Stop: 03/04/19 14:46 Last Admin: 02/03/19 15:11 Dose: 30 mls/hr Documented by: Fluconazole/Sodium Chloride (Diflucan) 200 mg in 100 mls @ 100 mls/hr IV Q24H [facility]; Protocol Stop: 02/18/19 18:01 Last Admin: 02/04/19 18:32 Dose: Not Given Documented by: Lisinopril (Zestril) 10 mg PO DAILY [facility] Stop: 03/04/19 09:01 Last Admin: 02/02/19 10:19 Dose: Not Given Documented by: Lisinopril (Zestril) 5 mg PO DAILY [facility] Stop: 03/04/19 10:16 Last Admin: 02/04/19 08:19 Dose: Not Given Documented by: Morphine Sulfate (Morphine Sulfate) 2 mg IV ONCE ONE Stop: 02/02/19 14:26 Last Admin: 02/03/19 20:52 Dose: Not Given Documented by: Morphine Sulfate (Morphine Sulfate) 2 mg IV Q2H PRN PRN Reason: Pain Stop: 03/04/19 14:46 Last Admin: 02/04/19 20:02 Dose: 2 mg Documented by: Nystatin (Mycostatin 100 Mu/Ml Suspension) 5 ml PO QID [facility] Stop: 03/04/19 00:31 Last Admin: 02/02/19 09:13 Dose: 5 ml Documented by: Nystatin (Mycostatin 100 Mu/Ml Suspension) 5 ml PO QID [facility] Stop: 03/04/19 13:01 Last Admin: 02/04/19 17:13 Dose: 5 ml Documented by: Oxymetazoline HCl (Afrin Nasal Muir) 1 spray NS ONCE ONE Stop: 02/05/19 09:35 Last Admin: 02/05/19 10:47 Dose: 1 spray Documented by: Phenol/Menthol (Chloraseptic) 1 spray MM PRN PRN PRN Reason: Sore Throat Stop: 03/04/19 03:32 Last Admin: 02/02/19 09:13 Dose: 1 spray Documented by: - Disposition Disposition: Short Term Hospital Inpatient Condition: Stable Discharge Date: 02/05/19 Discharge Time: 17:58 - To [facility] per ground EMS
[2019-02-05 20:12] VITALS: BP 104/54
[2019-02-05] MEDS: POLYETHYLENE GLYCOL 3350 17 GM PACKET PO SCH (20:13)
== END 2019-02-05 19:54 | disposition short-term general hospital (02) | DRG 189 ==
LOC: ER 22:27 → MS 02-02 00:11
PROVIDERS: ADMIT Family Medicine; ATTEND Family Medicine
CPT/HCPCS: 32555; 36415; 71020; 71046; 71260; 74019; 74020; 74177; 76942; 80053; 81001; 82607; 82945; 82947; 83519; 83605; 83615; 83880; 83986; 84155; 84157; 84207; 84443; 84484; 85007; 85025; 85610; 87040; 87070; 87075; 87205; 88305; 88312; 89051; 93005; 97161; 99285; Q9963; Q9967

== ENCOUNTER 2019-07-12 17:17 | Inpatient (IN) ==
[2019-07-12] MEDS ORDERED: LORAZEPAM 2 MG/ML ORAL.CONC PO PRN (17:22)
[2019-07-12] MEDS ORDERED: ALBUTEROL SULFATE 2.5 MG/0.5 ML VIAL.NEB IH PRN (17:22)
[2019-07-12] MEDS ORDERED: ONDANSETRON 8 MG TAB.RAPDIS PO PRN (17:22)
[2019-07-12] MEDS: MORPHINE SULFATE 10 MG/0.5 ML SYRINGE PO SCH ×3 (18:14→22:25)
[2019-07-12] MEDS: MORPHINE SULFATE 10 MG/0.5 ML SYRINGE PO PRN ×2 (18:15→23:28)
[2019-07-12] MEDS: SENNOSIDES/DOCUSATE SODIUM 1 TAB TABLET PO SCH (20:33)
[2019-07-12] MEDS ORDERED: MORPHINE SULFATE 100 MG TABLET.SA PO SCH (21:00)
[2019-07-12] MEDS ORDERED: LORazepam 1 MG TABLET PO PRN (23:43)
[2019-07-12] MEDS: MORPHINE SULFATE 60 MG TABLET.SA PO SCH (23:59)
[2019-07-13 00:35] VITALS: BP 113/58
[2019-07-13] MEDS: MORPHINE SULFATE 10 MG/0.5 ML SYRINGE PO SCH ×8 (01:30→14:36)
[2019-07-13] MEDS: MORPHINE SULFATE 10 MG/0.5 ML SYRINGE PO PRN ×3 (05:39→13:21)
[2019-07-13] MEDS: SENNOSIDES/DOCUSATE SODIUM 1 TAB TABLET PO SCH (09:04)
[2019-07-13] MEDS: LORAZEPAM 2 MG/ML ORAL.CONC PO SCH ×3 (09:05→13:14)
[2019-07-13] MEDS ORDERED: MINERAL OIL/PETROLATUM,WHITE 454 APPL JAR TP SCH (10:30)
[2019-07-13] MEDS: MORPHINE SULFATE 60 MG TABLET.SA PO SCH (12:07)
--- NOTE | 2019-07-13 23:55 | HP ---
Chief Complaint - Chief Complaint Date of Service: 07/13/19 Time of Service: 00:10 Chief Complaint: Respite, hospice History of Present Illness: Edilberto is an 79 yo male with kidney cancer in hospice. He has multiple metastatic sites including bone. He has had significant pain and has been on extended morphine at home with [facility]. He has had worsening of pain that is uncontrolled at home and hospice has requested he be admitted to respite care in the hospital and has given recommendation for medications. Medical History (Last Reviewed 07/12/19 @ 21:44 by Julita Seaman RN) Pleural effusion (Acute) Hypertension (Chronic) Mass of left kidney (Chronic) Abnormal weight loss Bacterial pneumonia Onset Date: 02/05/19 Bacterial pneumonia complicated by empyema, suspect gram-negative. Iron deficiency anemia Onset Date: 02/05/19 Perforated ulcer Severe protein-calorie malnutrition Cancer of kidney Onset Date: Unknown Intermittent second degree atrioventricular block Elevated BUN Elevated serum creatinine Esophageal candidiasis Onset Date: 02/05/19 Hypokalemia Surgical History: Surgical History (Last Reviewed 07/12/19 @ 21:44 by Julita Seaman RN) History of total left hip replacement History of chest tube placement Onset Date: 02/04/19 Family History: Family History (Last Reviewed 07/12/19 @ 21:44 by Julita Seaman RN) Father Cancer Mother Old age Other Unknown family medical history Social History: (Last Reviewed 07/12/19 @ 21:44 by Julita Seaman RN) Social History: adopted: No Marital status: household members: spouse, family number of children: 1 current occupational status: retired Highest education level completed: high school graduate Service: Yes Service comment: [facility] [employer] Tobacco: Smoking Status: Current some day smoker tobacco type: cigarettes Smoking cigarettes per day: 30 Alcohol: alcohol intake: never Substance Use: substance use type: does not use Dietary Habits: caffeine: Yes Pets: pets and animals: none Mandi/Episcopalian: mandi/zoroastrian: Indian Yazidism Review Of Systems (GEN) - Review of Systems Generalized/Overall Review: Present: Weakness. Absent: Chills, Fever EENTM: Present: No Symptoms Reported Respiratory: Absent: Cough, Shortness of Breath Cardiac: Absent: Chest Pain, Edema Abdominal: Present: Nausea, Abdominal Pain. Absent: Vomiting Genitourinary: Present: No Symptoms Reported Musculoskeletal: Present: Joint Pain, Back Pain Neurological: Present: No Symptoms Reported Skin: Present: No Symptoms Reported Endocrine: Present: No Symptoms Reported Immunizations: IMMUNIZATION HX Immunizations Up to Date No History of Influenza Vaccine Yes Hx Pneumococcal Vaccination Yes Allergies/Adverse Reactions: Allergies Allergy/AdvReac Type Severity Reaction Status Date / Time No Known Allergies Allergy Verified 07/12/19 21:51 Home Medications: HOME MEDICATIONS hydrocodone 10 mg-acetaminophen 325 mg tablet 1 tab PO Q4H PRN #180 tab 05/25/19 [Last Taken Unknown] ondansetron 8 mg disintegrating tablet 8 mg PO Q6H PRN #20 tab 05/25/19 [Last Taken Unknown] morphine 100 mg tablet,extended release 100 mg PO Q12H #60 tab 06/29/19 [Last Taken Unknown] morphine concentrate 100 mg/5 mL (20 mg/mL) oral solution 10 - 20 mg PO Q1H PRN #30 ml 07/10/19 [Last Taken Unknown] Polyethylene Glycol 3350 [Miralax] 17 gm PO DAILY 07/12/19 [Last Taken Unknown] Exam - Exam Vital Signs: Vital Signs - Last Taken Temp 37.8 C 07/12/19 23:50 Pulse 0 L 07/13/19 15:15 Resp 0 L 07/13/19 15:15 BP 113/58 07/12/19 23:50 Pulse Ox 83 L 07/12/19 23:50 Constitutional: Present: Alert, Oriented x3, Cooperative, Moderate distress - in pain, Thin and frail ENT Exam: Present: hearing grossly normal Eye Exam: bilateral eye: normal inspection Respiratory: Present: lungs clear, normal breath sounds Cardiovascular/Chest: Present: regular rate, rhythm, no murmur Abdomen: Present: soft, hypoactive Skin Exam: Present: normal color, jaundice, pallor Eye contact: Present: cooperative, good eye contact, normal speech Thoughts: Present: normal thought pattern, no apparent hallucination Assessment/Plan - Narrative Narrative: Edilberto is an 79 yo Male with kidney cancer and mets who is in significant pain and unable to control pain at home. He has been with [facility] and his pain has not been under control. Hospice requested admission for respite care and pain control. Recommendation were taken from hospice for pain control based on what he has been getting at home. He will get morphine scheduled and prn for pain control and lorazepam to help with anxiety/restlessness. He will be placed on comfort measures. He may have oxygen as needed. Will look into plans for discharge after respite whether it be back to home vs nursing facility. 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
--- NOTE | 2019-07-15 10:54 | DS ---
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 His pain was not adequately controlled at home however and so he was brought in for respite. We got him much more comfortable with pain medication and he passed peacefully at 1515 p.m. The family was not in attendance. Hospice nursing was summoned at the time of . He was discharged to the home of the family's choice. Procedures Performed: none - Additional Data Confirmation of as documented by pronouncing clinician: no pulse, no respirations, no heart sounds, pupils fixed and dilated Family: contacted Additional persons at bedside: other - Hospice and staff nursing Practitioner(Attending/PCP) notified: Yes Attending physician: Kennedy Reese Was code activated: No Autopsy requested: No Convict Guard notified: No [employer] notified: No - Not eligible Advance Directives: Yes Hospice patient: Yes
== END 2019-07-13 15:15 | disposition expired | DRG 687 ==
LOC: MS 17:17
PROVIDERS: ADMIT Family Medicine; ATTEND Family Medicine